=== PATIENT | female | born 1940 | race Caucasian/White ===

== ENCOUNTER 2024-08-19 10:36 | Emergency (ER) | payer MEDICARE, SELFPAY ==
--- NOTE | ~2024-08-19 | CT_ITS ---
EXAMINATION: CT ABDOMEN AND PELVIS WITH CONTRAST CLINICAL INFORMATION: Nausea, vomiting, prior history of diverticulitis COMPARISON: None available. TECHNIQUE: Multidetector volumetric images were obtained from the superior aspect of the liver through the pubic symphysis following administration 85 mL of Omnipaque 350 intravenous contrast. Sagittal and coronal reformatted images were obtained on the technologist's workstation. Oral contrast: No This CT examination was performed using dose optimization techniques as appropriate, variously including the following: *Automated exposure control *Adjustment of mA and/or kV according to patient size (this includes techniques or standardized protocols for targeted exams where dose is matched to indication/reason for exam; i.e. extremities or head) *Use of iterative reconstruction technique DLP: 411 mGY*cm FINDINGS: LUNG BASES: Again seen is linear high attenuation in the anterolateral base of the right lower lobe representing scarring/atelectasis. LIVER, GALLBLADDER, AND BILIARY TREE: The liver is normal in size, shape, and attenuation. No focal hepatic lesion or biliary ductal dilatation is present. The gallbladder is unremarkable with no evidence of radiopaque gallstones, gallbladder wall thickening, or obvious pericholecystic inflammatory changes. PANCREAS: Unremarkable. SPLEEN: Unremarkable. ADRENAL GLANDS: Unremarkable. KIDNEYS AND URETERS: Some is present in the bilateral kidneys on the prior examination are no longer present. The right ureter is mildly prominent compared to the prior. However, no stones are identified in the ureter or bladder. BLADDER: Unremarkable. GASTROINTESTINAL TRACT: There is a moderate size sliding hiatal hernia involving the stomach fundus. Unchanged. There is an end to end anastomosis involving the upper rectum. The appendix is decompressed. There are a few scattered pseudodiverticula in the descending colon. There is a benign lipoma at the ileocecal junction. Terminal ileum is unremarkable. ABDOMINAL WALL: No significant hernia is appreciated. LYMPH NODES: Normal. VASCULAR: The abdominal aorta is irregular in diameter without aneurysm. There is moderate focal atherosclerotic calcifications including the origins of the left greater than right renal arteries. PELVIC VISCERA: Unremarkable. OSSEOUS STRUCTURES: Chronic moderate superior endplate compression fracture of T12 is stable. 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 CT/CT abdomen pelvis w IV con IMPRESSION: Kidney stones present on the prior examination are no longer evident. There is mild dilation of the right ureter, ureter or bladder. There is an end to end anastomosis involving the upper rectum, new since the prior. 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 Subtle chronic moderate superior endplate compression fracture of T12. Fleischner guidelines were followed. Electronically signed by: Juan Cooper MD 08/19/2024 12:43 PM EDT RP
[2024-08-19 10:55] VITALS: BP 140/68; PULSE 90; RESP 18; TEMP 36.4; O2SAT 99; BMI 23.0
--- NOTE | 2024-08-19 10:56 | ECG_ITS ---
Test Reason : abdominal pain, nausea Blood Pressure : */* mmHG Vent. Rate : 79 BPM Atrial Rate : 79 BPM P-R Int : 124 ms QRS Dur : 70 ms QT Int : 368 ms P-R-T Axes : -5 5 2 degrees QTcB Int : 421 ms Normal sinus rhythm with sinus arrhythmia Normal ECG No previous ECGs available Referred By: Kleber Martinez Electronically Signed By: MANJU BEACH MD
--- NOTE | 2024-08-19 10:57 | ED.GENADULT ---
HPI - General Adult General Chief complaint: Nausea/Vomiting/Diarrhea Stated complaint: SOB Time Seen by Provider: 08/19/24 11:17 Source: patient, family, RN notes reviewed and old records reviewed Mode of arrival: ambulatory History of Present Illness ED Provider: Susan Pablo PA-C HPI narrative: 84-year-old female with a past medical history diverticulitis, presenting to the ED complaining of left-sided abdominal pain, nausea, vomiting/dry heaving and decreased p.o. intake x 1 week. Reports increasing life stressors - and feels this is contributing to symptoms/causing symptoms. Denies fever, chills, diarrhea/constipation, dysuria/hematuria Related Data Previous Rx's ?Medication ?Instructions ?Recorded hydroxyzine HCl 25 mg tablet 25 mg PO TID PRN anxiety #7 tabs 08/19/24 metoclopramide HCl 10 mg tablet 10 mg PO Q6H PRN nausea and 08/19/24 (Reglan) vomiting #10 tabs Allergies Allergy/AdvReac Type Severity Reaction Status Date / Time No Known Allergies Allergy Mild NONE Verified 08/19/24 10:56 Review of Systems Review of Systems: Yes all other systems are reviewed and are negative Constitutional: Constitutional: Reports as per [facility] Past Medical History Attestation statement: The following information was validated with the patient. Source: old records reviewed Physical Exam ED Vital Signs: Vital Signs - 24 hr 08/19/24 10:55 08/19/24 13:00 08/19/24 15:10 Temperature 97.6 F Pulse Rate 90 81 86 Respiratory Rate 18 18 16 Blood Pressure 140/68 H 160/71 H 141/69 H Pulse Oximetry 99 96 96 Oxygen Delivery Method Room Air Room Air 08/19/24 16:20 Temperature 98.0 F Pulse Rate 78 Respiratory Rate 16 Blood Pressure 141/68 H Pulse Oximetry 96 Oxygen Delivery Method Room Air BMI result Body Mass Index 23.0 Const General: cooperative, healthy appearing and no acute distress Orientation/consciousness: patient oriented x3 Limitations: no limitations HENMT Head: Yes normal to inspection and Yes atraumatic Ears: hearing grossly normal bilaterally General nose exam: Normal external nose present Face and sinus: Yes normal facial exam Eyes General: appearance normal, both eyes and all related structures EOM: EOMs intact bilaterally Neck Neck: Yes normal visual inspection and Yes no meningeal signs Resp Effort & Inspection: normal respiratory effort and no respiratory distress Cardio Rate: regular rate Heart sounds: S1 normal heart sound present and S2 normal heart sound present GI Inspection: Yes normal to inspection Palpation (GI): Soft to palpation, Tenderness to palpation present (GI) (Left abdomen) with no rebound tenderness, no guarding and not rigid General: Yes no CVA tenderness Back/Spine/Pelvis Back: no CVA tenderness Skin Rashes: no rashes Wounds: no wounds Neuro General: patient oriented x3, tone normal and no meningeal signs Cranial nerves: Yes CN's II-XII intact bilaterally Gait exam (Neuro): Normal gait present Extrem General: Yes normal to inspection Course Course Course Narrative: RME: 84 y old female presents to the ED for nausea, vomitting, retching, and dull abdominal ache for couple of days. Patient given zofran with no relief. labs EKG ordered. positive for left lower quadrant tenderness on palpation -1306--labs reassuring including negative troponin -UA with 15 ketones, not infected CT abdomen pelvis w IV con IMPRESSION: Kidney stones present on the prior examination are no longer evident. There is mild dilation of the right ureter, ureter or bladder. There is an end to end anastomosis involving the upper rectum, new since the prior. 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 Subtle chronic moderate superior endplate compression fracture of T12. Fleischner guidelines were followed. > patient is tolerating p.o. in the ED without difficulty. Reports improvement in nausea. Reports increasing anxiety. We will give p.o. Atarax prior to discharge. Plan to DC home with prescription of Atarax, therapist referral and GI referral patient admits she was previously on Zofran however did not work for her nausea Results discussed with patient including worrisome signs and symptoms and strict return precautions, and when to return to the emergency department. They verbalized understanding and feel safe for discharge at this time. Medications Administered Discontinued Medications Generic Name Dose Route Start Last Admin Trade Name Ayaanq PRN Reason Stop Dose Admin Diphenhydramine HCl 12.5 mg 08/19/24 12:42 08/19/24 12:58 Diphenhydramine Hcl 50 Mg/Ml Vial IVPUSH 08/19/24 12:43 12.5 mg ONCE ONE Administration Famotidine 20 mg 08/19/24 11:37 08/19/24 11:47 Famotidine/Pf 20 Mg/2 Ml Vial IVPUSH 08/19/24 11:38 20 mg ONCE ONE Administration Hydroxyzine HCl 25 mg 08/19/24 15:03 08/19/24 15:10 Hydroxyzine Hcl 25 Mg Tablet PO 08/19/24 15:04 25 mg ONCE ONE Administration Sodium Chloride 1,000 mls @ 999 mls/hr 08/19/24 11:45 08/19/24 12:57 Ns IV 08/19/24 12:45 Infused .Q1H1M MELO Infusion Iohexol 100 ml 08/19/24 12:04 08/19/24 12:04 Iohexol 350 Mg/Ml 100 Ml Infus..Btl IV 08/19/24 12:05 85 ml ONCE ONE Administration Ketorolac Tromethamine 15 mg 08/19/24 11:36 08/19/24 11:47 Ketorolac Tromethamine 15 Mg/Ml Vial IVPUSH 08/19/24 11:37 15 mg ONCE ONE Administration Metoclopramide HCl 10 mg 08/19/24 11:36 08/19/24 11:47 Metoclopramide Hcl 10 Mg/2 Ml Vial IVPUSH 08/19/24 11:37 10 mg ONCE ONE Administration Ondansetron HCl 4 mg 08/19/24 10:59 08/19/24 11:02 Ondansetron Odt 4 Mg Tab.Rapdis TRANSLINGU 08/19/24 11:00 4 mg ONCE ONE Administration Prochlorperazine Edisylate 2.5 mg 08/19/24 12:42 08/19/24 12:58 Prochlorperazine Edisylate 10 Mg/2 Ml Vial IVPUSH 08/19/24 12:43 2.5 mg ONCE ONE Administration Medical Decision Making Medical Decision Making MDM Narrative: 84-year-old female with a past medical history diverticulitis, presenting to the ED complaining of left-sided abdominal pain, nausea, vomiting/dry heaving and decreased p.o. intake x 1 week. On exam vital signs stable, NAD, nontoxic appearing, abdomen is soft with left-sided tenderness, no rebound or guarding. Concern for diverticulitis vs colitis vs metabolic abnormalities including dehydration vs anxiety. Lower suspicion for acute pancreatitis, cholecystitis/lithiasis or appendicitis at this time. Lower suspicion for renal stones/pyelo or ischemic bowel Plan: Labs, UA, CT AP, IVF, antiemetic, re-evaluate Please refer to course for remaining clinical decision making, interpretation of labs/imaging results, and discussions with consultants and/or family members. Differential Diagnosis Differential Diagnoses: The differential diagnosis associated with the presentation includes As above Admission/Observation Consideration of admission/observation: Escalation of care including admission/observation considered Lab Data MDM Lab Attestation statement: I reviewed the patient's lab results. 08/19/24 11:03 08/19/24 11:03 Labs: Lab Results 08/19/24 08/19/24 Range/Units 11:03 11:52 WBC 9.3 (4.8-10.8) X10*3/uL RBC 4.79 (4.20-5.50) X10*6/uL Hgb 15.0 (12.0-16.0) g/dl Hct 43.6 (37.0-47.0) % MCV 91.0 (80.0-98.0) fL MCH 31.3 (27.0-33.0) pg MCHC 34.4 (31.0-35.0) g/dl RDW 12.6 (11.0-16.0) % Plt Count 213 (160-400) X10*3/uL MPV 11.1 (9.4-12.3) fL Immature Gran % (Auto) 0.3 (0.0-0.4) % Neut % (Auto) 78.0 H (45-73) % Lymph % (Auto) 13.7 L (20-40) % [place] % (Auto) 7.2 (2-11) % Eos % (Auto) 0.2 (0-4) % Baso % (Auto) 0.6 (0-2) % Lymph # (Auto) 1.3 (1.2-4.9) X10*3/uL [place] # (Auto) 0.7 (0.1-1.2) X10*3/uL Eos # (Auto) 0.0 (0.0-0.4) X10*3/uL Baso # (Auto) 0.1 (0.0-0.2) X10*3/uL Abs Immat Gran (auto) 0.03 (0.00-0.03) X10*3/uL Absolute Neuts (auto) 7.2 (2.0-8.3) x10*3/uL Absolute Nucleated RBC 0.000 (0.0-0.012) X10*3/uL Nucleated RBC % (auto) 0.0 (0.0-0.2) /100WBC PT 11.8 (10.9-12.4) SEC INR 1.0 (0.9-1.1) APTT 26.5 (26.0-36.8) SEC Sodium 138 (135-145) mmol/L Potassium 4.1 (3.3-5.1) mmol/L Chloride 107 (96-108) mmol/L Carbon Dioxide 23 (22-29) mmol/L Anion Gap 12 (12-20) BUN 12 (9-16) mg/dL Creatinine 0.83 (0.5-1.4) mg/dL Estim Creat Clear Calc 43.2 Estimated GFR > 60 Random Glucose 99 (60-115) mg/dL Calcium 9.3 (8.4-10.2) mg/dL Magnesium 2.2 (1.6-2.6) mg/dL Total Bilirubin 0.6 (0.0-1.0) mg/dL AST 29 (5-31) U/L ALT 19 (0-31) U/L Alkaline Phosphatase 74 (39-117) U/L Troponin I High Sens < 2.7 (<3.5-17.0) ng/L Total Protein 7.9 (6.5-8.0) g/dL Albumin 4.3 (3.5-5.0) g/dL Lipase 20 (8-78) U/L Urine Color Yellow Urine Appearance Clear Urine pH 6.5 (5.0-9.0) Ur Specific [place] 1.010 (1.005-1.025) Urine Protein Negative (Neg-Trace) mg/dL Urine Glucose (UA) Negative (Negative) mg/dL Urine Ketones 15 (Negative) mg/dL Urine Blood Negative (Negative) Urine Nitrite Negative (Negative) Ur Leukocyte Esterase Trace H (Negative) Urine RBC 0-2 (0-2) /HPF Urine WBC 0-5 (0-5) /HPF Ur Squamous Epith Cells 0-2 (0-2) /HPF Urine Bacteria None Seen (None Seen) Hyaline Casts 0-2 (0-2) /LPF Independent Interpretation I performed an independent interpretation of an: EKG (My interpretation: EKG normal sinus rhythm with sinus arrhythmia rate of 79. AK interval 124. No previous to compare. Artifact present. No STEMI ) and CT Scan Radiology Impression Discussion of test interpretation with radiology: I have reviewed the radiologist's reading. Independent Historian Clinical information obtained from an independent historian. History obtained from or confirmed by: Other (Granddaughter) External Record Review External record reviewed: Inpatient record, Office record, Outpatient record, Prior outpatient labs, Prior outpatient radiology, Primary care record and Outside ED record Tests considered The following testing was considered but not selected: As above Prescription Management I considered prescription management with: Other Chronic Conditions Patient?s care impacted by: Other Social Determinants Patient?s care significantly limited by Social Determinants of Health including: Other Social Determinant of Health Discharge Plan Discharge Clinical Impression: Nausea & vomiting, Anxiety Abdominal pain Qualifiers: Abdominal location: left lower quadrant Qualified Code(s): R10.32 - Left lower quadrant pain Patient Disposition: Home, Self-Care Instructions: Acute Nausea and Vomiting (DC), Abdominal Pain (ED) Additional Instructions: your blood work is reassuring Your CAT scan shows mild dilation you were right ureter. Otherwise shows old findings, nothing new You need to follow up with your primary care doctor as well as Urology and Gastroenterology We also recommend you follow up with a therapist for your increasing anxiety/life stressors If you have any thoughts of hurting herself or anyone else return to the emergency department Hydroxyzine will help with anxiety Reglan will help with nausea and vomiting, please take as needed Prescriptions: New metoclopramide HCl [Reglan] 10 mg tablet 10 mg PO Q6H PRN (Reason: nausea and vomiting) Qty: 10 0RF hydroxyzine HCl 25 mg tablet 25 mg PO TID PRN (Reason: anxiety) Qty: 7 0RF Referrals: [facility] Gastroenterology Services [Provider Group] - 1 week [facility] Urology Services [Provider Group] [facility] [Outside] Interventions: ED Discharge Assessment Last Done: 08/19/24 16:20 Discharge Date/Time: 08/19/24 16:21 Print Language: Slovak
[2024-08-19] MEDS: Ondansetron ODT 4 MG TAB.RAPDIS TRANSLINGU (11:02)
[2024-08-19 11:29] LABS: MANUAL DIFF FLAG NO
[2024-08-19 11:30] LABS: Basophils Absolute Auto 0.1 X10*3/uL (0.0-0.2); Basophils Percent Auto 0.6 % (0-2); Eosinophils Percent Auto 0.2 % (0-4); Hematocrit 43.6 % (37.0-47.0); Imm Gran Abs Auto 0.03 X10*3/uL (0.00-0.03); Imm Gran Pct Auto 0.3 % (0.0-0.4); Lymphocytes Absolute Auto 1.3 X10*3/uL (1.2-4.9); Lymphocytes Percent Auto 13.7 % (20-40); Mean Corpuscular HGB Conc 34.4 g/dl (31.0-35.0); Mean Corpuscular Hemoglobin 31.3 pg (27.0-33.0); Mean Platelet Volume 11.1 fL (9.4-12.3); Monocytes Absolute Auto 0.7 X10*3/uL (0.1-1.2); Monocytes Percent Auto 7.2 % (2-11); Neutrophils Absolute Auto 7.2 x10*3/uL (2.0-8.3); Platelet Count 213 X10*3/uL (160-400); Red Blood Count 4.79 X10*6/uL (4.20-5.50); Red Cell Distribution Width 12.6 % (11.0-16.0); White Blood Count 9.3 X10*3/uL (4.8-10.8)
[2024-08-19 11:39] LABS: Prothrombin Time 11.8 SEC (10.9-12.4)
[2024-08-19 11:42] LABS: Partial Thromboplastin Time 26.5 SEC (26.0-36.8)
[2024-08-19 11:44] LABS: Alanine Aminotransferase 19 U/L (0-31); Albumin Level 4.3 g/dL (3.5-5.0); Alkaline Phosphatase 74 U/L (39-117); Anion Gap 12 (12-20); Aspartate Amino Transferase 29 U/L (5-31); Bilirubin Total 0.6 mg/dL (0.0-1.0); Blood Urea Nitrogen 12 mg/dL (9-16); Calcium 9.3 mg/dL (8.4-10.2); Carbon Dioxide 23 mmol/L (22-29); Chloride 107 mmol/L (96-108); Creatinine Clr Calc Pharmacy 43.2; Estimated Glomerular Filt Rate > 60; Glucose Random 99 mg/dL (60-115); Lipase 20 U/L (8-78); Potassium 4.1 mmol/L (3.3-5.1); Sodium 138 mmol/L (135-145); Total Protein 7.9 g/dL (6.5-8.0)
[2024-08-19] MEDS: Famotidine/PF 20 MG/2 ML VIAL IVPUSH (11:47)
[2024-08-19] MEDS: Metoclopramide HCl 10 MG/2 ML VIAL IVPUSH (11:47)
[2024-08-19] MEDS: 0.9 % Sodium Chloride 1,000 ML 999 ML IV (11:47)
[2024-08-19] MEDS: Ketorolac Tromethamine 15 MG/ML VIAL IVPUSH (11:47)
[2024-08-19 11:59] LABS: Appearance Urine Clear; Color Urine Yellow; Glucose Urine UA Negative (Negative); Leukocyte Esterase Urine Trace (Negative); Nitrite Urine Negative (Negative); PH 6.5 (5.0-9.0); UMIC TRIGGER UACC YES; Urine Blood Negative (Negative); Urine Ketones 15 mg/dL (Negative); Urine Protein Negative (Neg-Trace)
[2024-08-19 12:01] LABS: Bacteria Urine None Seen (None Seen); Hyaline Casts Urine 0-2 /LPF (0-2); RBC Urine 0-2 /HPF (0-2); Squamous Epithelial Cell Urine 0-2 /HPF (0-2); WBC Urine 0-5 /HPF (0-5)
[2024-08-19] MEDS: iohexoL 350 MG/ML 100 ML INFUS..BTL IV (12:04)
[2024-08-19 12:12] LABS: Troponin-I High Sensitivity < 2.7 ng/L (<3.5-17.0)
[2024-08-19 12:53] LABS: Magnesium 2.2 mg/dL (1.6-2.6)
[2024-08-19] MEDS: diphenhydrAMINE HCL 50 MG/ML VIAL 12.5 MG IVPUSH (12:58)
[2024-08-19] MEDS: Prochlorperazine Edisylate 10 MG/2 ML VIAL 2.5 MG IVPUSH (12:58)
[2024-08-19 13:00] VITALS: BP 160/71; PULSE 81; RESP 18; O2SAT 96
--- OUTSIDE RECORDS SUMMARY | 2024-08-19 13:58 | XMS_ITS | Clinical Summary ---
Author Organization [facility] Address [address] [place] [address] Care Team Providers Care Manager Sales Name Role Phone Paulino Osman MD Primary Care Provider [phone] Surgical History Surgery Date Site/Laterality Comments COLONOSCOPY 01/15/2002 PROCEDURE: HISTORICAL COLONOSCOPY; COMMENT: negative TONSILLECTOMY PROCEDURE: HISTORICAL TONSILLECTOMY CATARACT EXTRACTION PROCEDURE: HISTORICAL CATARACT REMOVAL; COMMENT: LEFT AND RIGHT OTHER SURGICAL HISTORY age 40 PROCEDURE: HISTORICAL VAGINAL HYSTERECTOMY WITH BSO; COMMENT: for bleeding COLONOSCOPY 2009 PROCEDURE: HISTORICAL COLONOSCOPY; COMMENT: negative COLONOSCOPY 2014 PROCEDURE: HISTORICAL COLONOSCOPY; COMMENT: no polyps BREAST BIOPSY Left PROCEDURE: BX BREAST; PERC NEEDLE CORE W/IMAG GUID; COMMENT: neg Medical History Medical History Date Comments Asthmatic bronchitis 04/05/2009 DX:Asthmati c bronchitis Osteoporosis DX:Osteoporosis GERD (gastroesophageal reflux disease) 09/21/2006 DX:GERD (gastroesophageal reflux disease) Diverticulitis 09/05/2011 DX:Diverticuliti s; COMMENT: [facility] 08/21 Family History Medical History Relation Name Comments Colon cancer Aunt Liver disease Brother 1 non alcohol Colon polyps Brother 2 dx older than 6 0 yo. Colon cancer Father Colon cancer Uncle 1 uncle # 1 Colon cancer Uncle 2 uncle # 2 Breast cancer Neg Hx Ovarian cancer Neg Hx Uterine cancer Neg Hx Relation Name Status Comments Aunt Brother 1 HTN CHOLESTEROL liver disease Brother 2 Brother 3 Alive HTN CHOLESTEROL Father (Age 71) CANCER COL ON Mother (Age 47) RHEUMATIC HEART Uncle 1 Uncle 2 Social History Tobacco Use Types Packs/Day Years Used Date Smoking Tobacco: Former Smokeless Tobacco: Former Alcohol Use Standard Drinks/Week Comments Yes 0 (1 standard drink = 0.6 oz pur e alcohol) Comments Unknown Sex and Gender Information Value Date Recorded Sex Assigned at Not on file Legal Sex Female 2:54 PM EST Gender Identity Not on file Sexual Orientation Not on file Obstetrics History Last Filed Vital Signs Vital Sign Reading Time Taken Comments Blood Pressure 104/74 05/08/2023 11:47 AM EST Pulse 78 05/08/2023 11:47 AM EST Temperature - - Respiratory Rate - - Oxygen Saturation - - Inhaled Oxygen Concentration - - Weight 57.6 kg (127 lb) 05/08/2023 11:47 AM EST Height 160 cm (5' 3 ) 05/08/2023 11:47 AM EST Body Mass Index 22.5 05/08/2023 11:47 AM EST Plan of Treatment Health Maintenance Due Date Last Done Comments Zoster Vaccines (2 of 3) 01/24/2010 11/29/2009 RSV Immunization Adult Patients (1 - 1-dose 75+ series) 2017 Colorectal Cancer Screening: Colonoscopy 02/08/2022 Depression Screening 02/08/2022 Falls Risk Assessment 02/08/2022 Osteoporosis Screening (Bone Density Screening) 02/08/2022 Social Influencers of Health Screening 02/08/2022 COVID-19 Vaccine ( season) 2023 Influenza Vaccine (Season Ended) 2024 01/07/2019, 01/09/2018, 03/09/2017, Additional history exists DTaP,Tdap,and Td Vaccines (3 - Td or Tdap) 08/16/2026 08/16/2016, 08/08/2006 Pneumococcal Vaccine: 50+ Years Completed 01/07/2019, 01/09/2018, 05/24/2015, Additional history exists HIB Vaccines Aged Out No longer eligi ble based on patient's age to complete this topic HPV Vaccines Aged Out No longer eligi ble based on patient's age to complete this topic Hepatitis A Vaccines Aged Out No long er eligible based on patient's age to complete this topic Hepatitis B Vaccines Aged Out No long er eligible based on patient's age to complete this topic IPV Vaccines Aged Out No longer eligi ble based on patient's age to complete this topic MMR Vaccines Aged Out No longer eligi ble based on patient's age to complete this topic Meningococcal ACWY Vaccine Aged Out N o longer eligible based on patient's age to complete this topic Meningococcal B Vaccine Aged Out No l onger eligible based on patient's age to complete this topic RSV Immunization Patients Under 20 months Aged Out No longer eligible based on patient's age to complete this topic Varicella Vaccines Aged Out No longer eligible based on patient's age to complete this topic Advance Directives Documents on File Type Date Recorded 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 Health Care Decision (hx) 10/22/2019 AD HONG DIRECTIVE Health Care Decision (hx) 10/22/2019 AD HONG DIRECTIVE Health Care Decision (hx) 10/22/2019 AD HONG DIRECTIVE Health Care Decision (hx) 10/22/2019 AD HONG DIRECTIVE Health Care Decision (hx) 10/22/2019 AD HONG DIRECTIVE Health Care Decision (hx) 10/22/2019 AD HONG DIRECTIVE Health Care Decision (hx) 10/22/2019 AD HONG DIRECTIVE Health Care Decision (hx) 10/22/2019 AD HONG DIRECTIVE Care Teams Manager Sales Relationship Specialty Start Date End Date Paulino Osman MD [address] [place] [id number] PCP - General Internal Medicine 09/18/19
[2024-08-19 15:10] VITALS: BP 141/69; PULSE 86; RESP 16; O2SAT 96
[2024-08-19] MEDS: hydrOXYzine HCL 25 MG TABLET PO (15:10)
[2024-08-19 16:20] VITALS: BP 141/68; PULSE 78; RESP 16; TEMP 36.7; O2SAT 96
== END 2024-08-19 16:21 | disposition home or self-care (01) ==
PROVIDERS: Physician Assistant; Emergency Provider Emergency Medicine Emergency Medical Services
DX: I49.8 Other specified cardiac arrhythmias (principal); R10.2 Pelvic and perineal pain; R11.2 Nausea with vomiting, unspecified; F41.9 Anxiety disorder, unspecified; Z79.899 Other long term (current) drug therapy
CPT/HCPCS: 36415; 74177; 80053; 81001; 83690; 83735; 84484; 85025; 85610; 85730; 93005; 96361; 96374; 96375; 99284; 99285; J0737; J1200; J1308; J1885; J2765; Q9967

== ENCOUNTER → 2024-08-19 10:56 | Outpatient (BNV) | payer MEDICARE, SELFPAY | PROVIDERS: Emergency Provider Emergency Medicine Emergency Medical Services; Visit Provider Internal Medicine Cardiovascular Disease | DX: R10.9 Unspecified abdominal pain (principal); R11.0 Nausea | CPT/HCPCS: 93010 ==

== ENCOUNTER → 2024-08-19 11:38 | Outpatient (BNV) | payer MEDICARE, SELFPAY | PROVIDERS: Emergency Provider Emergency Medicine Emergency Medical Services; Visit Provider Radiology Diagnostic Radiology | DX: I70.0 Atherosclerosis of aorta (principal) | CPT/HCPCS: 74177 ==